=== PATIENT | male | born 1965 | race African-American/Black ===

== ENCOUNTER 2017-03-24 14:28 | Emergency (ER) | payer MEDICAID ==
[~2017-03-24] VITALS: Ht 185.4 cm; Wt 95.0 kg
[2017-03-24] MEDS ORDERED: BENZTROPINE MESYLATE 1MG/1ML 2ML AMP IV ONE (17:15)
[2017-03-24] MEDS ORDERED: BACITRACIN ZINC OINT UDPKT TOP ONE (18:15)
[2017-03-24 18:35] VITALS: BP 122/81
== END 2017-03-24 18:57 | disposition home or self-care (01) ==
LOC: ER 14:52
DX: G24.9 Dystonia, unspecified (principal); F20.0 Paranoid schizophrenia; L02.91 Cutaneous abscess, unspecified
CPT/HCPCS: 96374; 99284; J0515; Z7610